=== PATIENT | male | born 1985 | race Caucasian/White ===

== ENCOUNTER 2018-06-01 15:43 | Emergency (ER) | payer OTHER ==
[~2018-06-01] VITALS: Ht 177.8 cm; Wt 62.8 kg
--- NOTE | 2018-06-01 16:15 | NUR ---
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
[2018-06-01] MEDS ORDERED: SODIUM CHLORIDE FLUSH 10ML SYR IVF ONE (16:30)
[2018-06-01 16:52] LABS: BASOPHILS # (AUTO) 0.03 x10^3/uL (0-0.1); BASOPHILS % (AUTO) 0 % (0-1); EOSINOPHILS # (AUTO) 0.02 x10^3/uL (0-0.4); EOSINOPHILS % (AUTO) 0 % (1-7); LYMPHOCYTES # (AUTO) 1.37 x10^3/uL (1-3.4); LYMPHOCYTES % (AUTO) 12 % (22-44); MD NO; MEAN CORPUSCULAR HEMOGLOBIN 32.5 pg (27.5-34.5); MEAN CORPUSCULAR HGB CONC 34.8 g/dL (33.2-36.2); MEAN CORPUSCULAR VOLUME 93.4 fL (81-97); MEAN PLATELET VOLUME 7.2 fL (7.4-10.4); MONOCYTES # (AUTO) 0.45 x10^3/uL (0.2-0.8); MONOCYTES % (AUTO) 4 % (2-9); NEUTROPHILS # (AUTO) 9.78 x10^3/uL (1.8-6.8); NEUTROPHILS % (AUTO) 84 % (42-75); PLATELET COUNT 357 x10^3/uL (130-400); RED BLOOD COUNT 5.13 x10^6/uL (4.38-5.82); RED CELL DISTRIBUTION WIDTH 11.6 % (9.4-14.8)
[2018-06-01 17:03] LABS: ALANINE AMINOTRANSFERASE 21 U/L (12-78); ALBUMIN 4.7 g/dL (3.4-5.0); ANION GAP 8 mmol/L (5-15); CALCIUM 9.2 mg/dL (8.5-10.1); CHLORIDE 110 mmol/L (98-107); CREATININE 1.09 mg/dL (0.7-1.3)
[2018-06-01 17:05] LABS: ALKALINE PHOSPHATASE 61 U/L (45-117); BILIRUBIN,TOTAL 0.8 mg/dL (0.2-1.0); TOTAL PROTEIN 8.2 g/dL (6.4-8.2)
[2018-06-01] MEDS ORDERED: ONDANSETRON ODT 4 MG ONE (17:27)
[2018-06-01] MEDS ORDERED: HYDROcodone/APAP 5/325 TABLET PO ONE (17:30)
[2018-06-01] MEDS ORDERED: ONDANSETRON ODT 4 MG PO ONE (17:30)
[2018-06-01] MEDS ORDERED: OMNIPAQUE 350 MG/ML, 100ML BOTTLE ONE (17:49)
[2018-06-01] MEDS ORDERED: HYDROcodone/APAP 5/325 TABLET ONE (18:01)
[2018-06-01 18:05] VITALS: BP 112/65
--- NOTE | 2018-06-01 18:05 | NUR ---
AFTER GIVING ZOFRAN ODT OPPORTUNITY TO DECREASE NAUSEA, PT GIVEN NORCO FOR PAIN. PT HAS NOT VOMITED SINCE ARRIVAL BUT HAS WAVES OF PAIN
--- NOTE | 2018-06-01 18:30 | NUR ---
AMBULATED STEADY GAIT TO BATHROOM TO PROVIDE URINE SAMPLE
[2018-06-01 18:48] LABS: MICROSCOPIC NOT IND
--- NOTE | 2018-06-01 18:48 | NUR ---
PT GIVEN PRESCRIPTION AND DISCHARGE INSTRUCTIONS. AMBULATED TO DISCHARGE WINDOW
[2018-06-01 18:53] LABS: CULTURE INDICATED? NO
== END 2018-06-01 18:51 | disposition home or self-care (01) ==
LOC: ED 18:40
DX: R10.31 Right lower quadrant pain (principal)
CPT/HCPCS: 36415; 74177; 80053; 81003; 83690; 85025; 99284; Q0162; Q9967